=== PATIENT | female | born 1965 | race Caucasian/White ===

== ENCOUNTER 2016-10-18 12:36 | Emergency (ER) | payer BC ==
[~2016-10-18] VITALS: Ht 160 cm; Wt 74.3 kg
[~2016-10-18 12:36] MED LIST: ASPI81TA28 PO; PROP150T2 PO; TPRSR25 PO
[2016-10-18 12:40] VITALS: TEMP 36.8; Ht 160 cm; Wt 74.3 kg
[2016-10-18 12:58] VITALS: O2SAT 97
[2016-10-18] MEDS ORDERED: METO25TA3 PO (13:01)
[2016-10-18] MEDS ORDERED: ASPI81TA28 PO (13:01)
[2016-10-18] MEDS ORDERED: PROP150T PO (13:01)
[2016-10-18 13:27] LABS: BASO % 0.6 %; BASO ABS # 0.03 K/uL (0-0.2); COMPLETE YES; EOS % 1.5 %; HEMATOCRIT 37.1 % (37-47); IG% 0.2 %; LYMPH % 40.5 %; LYMPH ABS # 2.13 K/uL (1.2-3.4); MEAN CELL VOLUME 89.2 fL (80-100); MEAN CORPUSCULAR HEMOGLOBIN 30.8 pg (25-34); MEAN CORPUSCULAR HGB CONC 34.5 g/dl (32-36); MEAN PLATELET VOLUME 10.4 fL (7.4-10.4); NEUT % 50.2 %; PLATELET COUNT 267 K/uL (130-400); RED BLOOD COUNT 4.16 M/uL (4.2-5.4); WHITE BLOOD COUNT 5.26 K/uL (4.8-10.8)
--- NOTE | 2016-10-18 13:39 | DIAGNOSTIC IMAGING REPORT ---
CHEST ONE VIEW PORTABLE CLINICAL HISTORY: Fever. Sepsis. COMPARISON STUDY: Chest radiograph September 01, 2015. FINDINGS: Lung volumes are normal. There is no pneumothorax or pleural effusion. Cardiac size is normal. Mediastinal contours are normal. There is no evidence of pulmonary edema. IMPRESSION: No acute cardiopulmonary findings. Electronically signed by: Huy Galvan M.D. 10/18/2016 1:37 PM Dictated Date/Time: 10/18/2016 1:37 PM
[2016-10-18 13:40] LABS: PARTIAL THROMBOPLASTIN RATIO 1.1; PROTHROMBIN TIME (PATIENT) 10.9 SECONDS (9.0-12.0)
[2016-10-18 13:49] LABS: BLOOD UREA NITROGEN 13 mg/dl (7-18); BUN/CREATININE RATIO 17.5 (10-20); CALCIUM 8.2 mg/dl (8.5-10.1); CARBON DIOXIDE 27 mmol/L (21-32); CHLORIDE 110 mmol/L (98-107); CREATININE 0.77 mg/dl (0.60-1.20); GLUCOSE 113 mg/dl (70-99); POTASSIUM 3.6 mmol/L (3.5-5.1); SODIUM 143 mmol/L (136-145)
[2016-10-18 14:02] LABS: ALKALINE PHOSPHATASE 30 U/L (45-117); ALT/SGPT 18 U/L (12-78); AST/SGOT 11 U/L (15-37); CKMB/CK RATIO 1.6 (0-3.0)
--- NOTE | 2016-10-18 15:11 | EMERGENCY ROOM VISIT NOTE ---
History Report prepared by Magen: Dc Evans Under the Supervision of: Dr. Jam Palafox D.O. First contact with patient: 12:55 Chief Complaint: CHEST PAIN Stated Complaint: CHEST PAIN Nursing Triage Summary: Triage note: Pt reports "i went to the dr to check out some chest pain that started on saturday and they asked me to come here to do some more tests." History of Present Illness The patient is a 51 year old female who presents to the Emergency Room with complaints of waxing and waning chest pain that started 3 days ago. She says that the pain is always there, but alternates between her chest and her back. She saw her family doctor earlier today, and nothing abnormal was found, but the doctor recommended that the patient come here for further testing. The patient states that her pain level is very low right now. She denies any shortness of breath, fevers, cough, nausea, vomiting, abdominal pain, or pain or swelling in her legs. She has not had any problems with exertion. Source of History: patient Onset: 3 days ago Position: chest Symptom Intensity: pain level low right now Timing: waxes/wanes Associated Symptoms: + back pain, No SOB, No abdominal pain, No cough, No fevers, No nausea, No vomiting Note: Associated symptoms: Denies pain or swelling in legs. Review of Systems See HPI for pertinent positives & negatives. A total of 10 systems reviewed and were otherwise negative. Past Medical & Surgical Medical Problems: (1) Heart block AV second degree (2) Paroxysmal atrial fibrillation Surgical Problems: (1) H/O arthroscopic knee surgery (2) History of section (3) History of tonsillectomy Family History Heart disease Hypertension Social History Smoking Status: Never Smoker Smokeless Tobacco Use: No Alcohol Use: occasionally Marital Status: Housing Status: lives with significant other Occupation Status: employed Current/Historical Medications Scheduled Aspirin (Aspirin Ec), 81 MG PO DAILY Metoprolol Succinate (Toprol Xl), 1 TAB PO DAILY Propafenone Hcl (Propafenone Hcl), 150 MG PO TID Allergies Coded Allergies: No Known Allergies (Verified , 09/01/15) Physical Exam Vital Signs Date Time Temp Pulse Resp B/P Pulse Ox O2 Delivery O2 Flow Rate FiO2 10/18/16 15:27 63 18 106/71 98 Room Air 10/18/16 12:58 97 Room Air 10/18/16 12:57 57 10/18/16 12:55 98 Room Air 10/18/16 12:40 36.8 60 18 108/77 97 Room Air Physical Exam CONSTITUTIONAL/VITAL SIGNS: Reviewed / noted above. GENERAL: Non-toxic in appearance. INTEGUMENTARY: Warm, dry, and [place]. HEAD: Normocephalic. EYES: without scleral icterus or trauma. ENT/OROPHARYNX: clear and moist. LYMPHADENOPATHY/NECK: Is supple without lymphadenopathy or meningismus. RESPIRATORY: Lungs clear and equal. CARDIOVASCULAR: Regular rate and rhythm. GI/ABDOMEN: Soft and nontender. No organomegaly or pulsatile mass. No rebound or guarding. Normal bowel sounds. EXTREMITIES: Warm and well perfused. BACK: No CVA tenderness. NEUROLOGICAL: Intact without focal deficits. PSYCHIATRIC: normal affect. MUSCULOSKELETAL: Normally developed with good muscle tone. Medical Decision & Procedures ER Provider Diagnostic Interpretation: X ray results and stated below per my interpretation and radiology interpretation. CHEST ONE VIEW PORTABLE CLINICAL HISTORY: Fever. Sepsis. COMPARISON STUDY: Chest radiograph September 01, 2015. FINDINGS: Lung volumes are normal. There is no pneumothorax or pleural effusion. Cardiac size is normal. Mediastinal contours are normal. There is no evidence of pulmonary edema. IMPRESSION: No acute cardiopulmonary findings. Electronically signed by: Huy Galvan M.D. 10/18/2016 1:37 PM Dictated Date/Time: 10/18/2016 1:37 PM Laboratory Results 10/18/16 13:00 Red Blood Count 4.16, Mean Corpuscular Volume 89.2, Mean Corpuscular Hemoglobin 30.8, Mean Corpuscular Hemoglobin Concent 34.5, Mean Platelet Volume 10.4, Neutrophils (%) (Auto) 50.2, Lymphocytes (%) (Auto) 40.5, Monocytes (%) (Auto) 7.0, Eosinophils (%) (Auto) 1.5, Basophils (%) (Auto) 0.6, Neutrophils # (Auto) 2.64, Lymphocytes # (Auto) 2.13, Monocytes # (Auto) 0.37, Eosinophils # (Auto) 0.08, Basophils # (Auto) 0.03 10/18/16 13:00 Test 10/18/16 13:00 White Blood Count 5.26 K/uL (4.8-10.8) Red Blood Count 4.16 M/uL (4.2-5.4) Hemoglobin 12.8 g/dL (12.0-16.0) Hematocrit 37.1 % (37-47) Mean Corpuscular Volume 89.2 fL (80-100) Mean Corpuscular Hemoglobin 30.8 pg (25-34) Mean Corpuscular Hemoglobin Concent 34.5 g/dl (32-36) Platelet Count 267 K/uL (130-400) Mean Platelet Volume 10.4 fL (7.4-10.4) Neutrophils (%) (Auto) 50.2 % Lymphocytes (%) (Auto) 40.5 % Monocytes (%) (Auto) 7.0 % Eosinophils (%) (Auto) 1.5 % Basophils (%) (Auto) 0.6 % Neutrophils # (Auto) 2.64 K/uL (1.4-6.5) Lymphocytes # (Auto) 2.13 K/uL (1.2-3.4) Monocytes # (Auto) 0.37 K/uL (0.11-0.59) Eosinophils # (Auto) 0.08 K/uL (0-0.5) Basophils # (Auto) 0.03 K/uL (0-0.2) RDW Standard Deviation 39.2 fL (36.4-46.3) RDW Coefficient of Variation 12.1 % (11.5-14.5) Immature Granulocyte % (Auto) 0.2 % Immature Granulocyte # (Auto) 0.01 K/uL (0.00-0.02) Prothrombin Time 10.9 SECONDS (9.0-12.0) Prothromb Time International Ratio 1.0 (0.9-1.1) Activated Partial Thromboplast Time 27.3 SECONDS (21.0-31.0) Partial Thromboplastin Ratio 1.1 Anion Gap 6.0 mmol/L (3-11) Est Creatinine Clear Calc Drug Dose 83.4 ml/min Estimated GFR () 103.6 Estimated GFR (Non- 89.4 BUN/Creatinine Ratio 17.5 (10-20) Calcium Level 8.2 mg/dl (8.5-10.1) Total Bilirubin 0.5 mg/dl (0.2-1) Direct Bilirubin 0.1 mg/dl (0-0.2) Aspartate Amino Transf (AST/SGOT) 11 U/L (15-37) Alanine Aminotransferase (ALT/SGPT) 18 U/L (12-78) Alkaline Phosphatase 30 U/L (45-117) Total Creatine Kinase 43 U/L (26-192) Creatine Kinase MB 0.7 ng/ml (0.5-3.6) Creatine Kinase MB Ratio 1.6 (0-3.0) Troponin I < 0.015 ng/ml (0-0.045) Total Protein 6.7 gm/dl (6.4-8.2) Albumin 3.9 gm/dl (3.4-5.0) Lipase 159 U/L (73-393) Thyroid Stimulating Hormone (TSH) 1.990 uIu/ml (0.300-4.500) Laboratory results as stated above per my review. ECG Indication: chest pain Rate (beats per minute): 55 Rhythm: sinus rhythm Findings: no ectopy, other (no acute injury) ED Course 1306: Previous medical records were reviewed. The patient was evaluated in room C1B. A complete history and physical examination was performed. 1502: On reevaluation, the patient is resting comfortably. I discussed the results and findings with the patient. She verbalized agreement of the treatment plan. She was discharged home. Medical Decision the differential was considered includes acute myocardial infarction, acute coronary syndrome, myocarditis, pericarditis, pericardial effusions /tamponade, esophageal perforation, thoracic aortic dissection, pulmonary embolism, pneumonia, pneumothorax, pancreatitis, shingles, acute cholecystitis, perforated abdominal viscus. I attest that I have personally reviewed the patient's current medication list. Patient was found to have normal blood pressure on screening and does not require follow-up. This is a 51-year-old female who presents to the ED with a chief complaint of chest pain that started on Saturday. The patient states that she saw her PCP and was referred here for further evaluation. She states that she has had the symptoms for 3 days continuously but at times the pain is in the back and other times in the front. She denies any cough or fevers. No shortness of breath, nausea or vomiting. She denies any leg pain or swelling. The patient has no other complaints. Her vital signs are normal. Physical exam was normal. EKG shows a sinus rhythm at a rate of 55. CBC and complete metabolic panel were unremarkable. Troponin is negative. TSH is normal. Chest x-ray did not show acute disease. The patient was told the results the test. She is felt to be stable for discharge and outpatient follow-up. Impression Primary Impression: Retrosternal chest pain Scribe Attestation The scribe's documentation has been prepared under my direction and personally reviewed by me in its entirety. I confirm that the note above accurately reflects all work, treatment, procedures, and medical decision making performed by me. Departure Information Dispostion Home / Self-Care Referrals Kandace Bolden D.O. (PCP) Patient Instructions Chest Pain - [facility], [facility] Additional Instructions Follow-up with your doctor for further care and evaluation in 1-2 days. Return to the emergency department for worsening or new symptoms or any concerns. You have been examined and treated today on an emergency basis only. This is not a substitute for, or an effort to provide, complete comprehensive medical care. It is impossible to recognize and treat all injuries or illnesses in a single emergency department visit. It is therefore important that you follow up closely with your doctor. Call as soon as possible for an appointment.
[2016-10-18 15:27] VITALS: BP 106/71; PULSE 63; O2SAT 98
== END 2016-10-18 16:10 | disposition home or self-care (01) ==
LOC: C.EDB 12:37 → C.EDC 16:10
DX: R07.2 Precordial pain (principal); I48.91 Unspecified atrial fibrillation; I44.1 Atrioventricular block, second degree; Z96.659 Presence of unspecified artificial knee joint; Z98.890 Other specified postprocedural states; Z79.82 Long term (current) use of aspirin; Z79.899 Other long term (current) drug therapy

== ENCOUNTER 2019-11-04 10:34 | Inpatient (IN) ==
--- NOTE | 2019-11-04 10:54 | History & Physical Bridge Note ---
Date of Service November 04, 2019 History & Physical Bridge Note I have examined the patient, reviewed the History & Physical and in the interval since the performance of the History & Physical I have noted the following changes of clinical significance: no changes noted
--- NOTE | 2019-11-04 10:54 | Pre Anesthesia Assessment ---
Date of Service November 04, 2019 Pre Sedation Assessment Cardiovascular RRR, no murmur, no edema Respiratory normal respiratory effort, lungs clear to auscultation Pre-Sedation Airway Assessment Smoking Status: Never smoker Hx Sleep Apnea: No Hx Difficult Intubation: No Short, Thick Neck: No Thyromental Distance: < 3.5 Finger Breadths Oral Cavity: + WNL Mallampati Class: II ASA: ASA3 NPO Status Date of Last Intake of Fluids: 11/03/19 Date of Last Intake of Solid Food: 11/03/19 Procedure Planning Contraindications for Sedation: none Current Medications Reviewed: Yes Notes The planned sedation has been discussed with the patient. Informed Consent was obtained. I have identified the patient, determined the appropriateness of sedation and have assessed the patient immediately prior to the procedure. All medicine(s) and interventions are by my order.
[2019-11-04] MEDS ORDERED: MIDAZOLAM HCL 5 MG/ML 1 ML VIAL ONE ×3 (10:58→13:03)
[2019-11-04] MEDS ORDERED: fentaNYL citrate 100 MCG/2 ML VIAL ONE ×4 (10:58→13:36)
[2019-11-04] MEDS ORDERED: HEPARIN (PORCINE) 1000 UNIT/ML 10 ML (CATH LAB USE ONLY) ONE (12:06)
--- NOTE | 2019-11-04 13:59 | Post Anesthesia Assessment ---
Date of Service November 04, 2019 Post Sedation Assessment Recovery Score Activity: Moves 4 extremities Respiration: Deep Breath/Cough Circulation: +/-20% PreAnes Value Consciousness: Fully Awake Oxygen Saturation: > 92% On Room Air Discharge Sedation Level of Care: Fast Track Phase II Post Sedation Plan On clinical assessment, the patient appears to have tolerated the sedation without complications. Patient is recovering as anticipated. Patient will continue to be monitored by nursing and may be discharged when sedation discharge criteria are met per below protocol. Upon Completions of procedure up to 15 minutes continue every 5 minute vital signs and the P.A.R. score; then discharge to a Phase I or Fast Track to Phase II per the following guidelines: * Discharge Patient to appropriate Phase II area if PAR is 8 or greater or return to pre- procedure baseline. The post - procedure orders will be as directed. * If PAR score is less than 8 or not return to pre-procedure baseline then patient will follow Phase I monitoring till PAR is reached for Phase II. The Phase I may be done in procedure room or may call to secure a Phase I area. * If naloxone or flumazenil are used for reversal, hold in Phase I for continued monitoring from when last reversal dose was given for a minimum of 60 minutes or longer pending the nurse and/or physician discretion of patient condition before discharge to Phase II. Please call the Sedation Physician to re-evaluate and complete post-note for discharge to Phase II area. Do NOT discharge from procedure sedation or Phase 1 until post- sedation evaluation note is complete by procedure /sedation MD Sedation Discharge Instructions to be given to the patient at discharge to home.
--- NOTE | 2019-11-04 14:02 | Operative Report ---
Post Operative Report Pre & Post Diagnosis Pre: SVT Post: micro-reentry atrial flutter anterior-lateral superior to TV Operation Date: 11/04/19 12:00 <No data on this case meets the specified criteria> I identified the patient and participated in the time-out.: Yes Procedure Operation Date: 11/04/19 12:00 Actual Procedures p EPS + Ablation for SVT Flutter - Violet Ramirez DO Surgeon Violet Ramirez, Pressure Tester Operator none Estimated Blood Loss 5 Findings Consistent with Post-Op Diagnosis Specimens none Description of Procedure see official report I attest to the content of the Intraoperative Record and any orders documented therein. Any exceptions are noted below.
--- NOTE | 2019-11-04 14:09 | Discharge Summary ---
Date of Service November 07, 2019 Admission HPI Per Admitting Provider Pt admitted for elective EPS and possible ablation Admission Exam Per Admitting Provider aaox3, NAD NC/AT, EOMI Supple No JVD Tachy S1/S2, No murmur CTA b/l no w/r/r soft nt/nd no LE edema b/l skin intact no focal deficits Principal Diagnosis Atypical atrial flutter s/p EPS and ablation PAT started on sotalol Discharge Exam aaox3, NAD NC/AT, EOMI Supple No JVD Nrl S1/S2, No murmur CTA b/l no w/r/r soft nt/nd no LE edema b/l skin intact no focal deficits b/l groins soft no hematoma ENMT Mallampati Class: II Respiratory normal respiratory effort, lungs clear to auscultation Cardiovascular RRR, no murmur, no edema Discharge Data Allergies Allergy/AdvReac Type Severity Reaction Status Date / Time No Known Allergies Allergy Unknown Verified 09/01/15 12:16 Procedures Performed Operation Date: 11/04/19 12:00 Actual Procedures p EPS + Ablation for SVT Flutter - Violet Ramirez DO Ordered Studies ECG: SB 11/04/19 07:30 EP Lab Images for PACS ONCE Hospital Course (1) PAT (paroxysmal atrial tachycardia): Patient started on sotalol given the scar burden seen in intracardiac mapping of the RA involving the entire RA anterior and lateral keith; suspect pt to have more atrial arrhythmias. (2) Atypical atrial flutter: has tolerated sotalol load without issue will d/c home now script already sent to [facility]'s pharmacy will f/u as scheduled questions answered to her satisfaction Total Time Total Time Spent Total Time Spent (In Minutes): 40 Total Time Includes: Examination of the Patient, Discharge Planning, Medication Reconciliation and Other Discharge Plan Discharge Items Patient Disposition: Home - Self-Care Reason For Visit: SVT, PAT Discharge Diagnosis: Micro-reentry atypical atrial flutter s/p ablation Condition on Discharge: Good Activity: Resume your previous activity Lifting: No more than 10 pounds Lifting Comment: do not do any heavy lifting & squating for 1 week Bathing: Keep incision dry Non-emergency contact: Primary Care Provider Call non-emergency contact if: you have any medication questions Follow-up/Referrals: Quita Parsons, DO [Primary Care Provider] - Diet: Regular Addtl Attending Provider Instructions: f/u with Dr. Ramirez in [facility] December 07 at 2:15pm Pending Studies at Discharge: No Stand-Alone Forms: My [facility] Medications and DC Order Prescriptions: Continued ASPIRIN (ASPIRIN EC) 81 MG tablet 81 mg PO DAILY Qty: 0 RF: 0 Metoprolol Succinate (TOPROL XL) 25 MG [id number] 1 tab PO DAILY Qty: 0 RF: 0 PROPAFENONE HCL 150 MG tablet 150 mg PO TID Qty: 0 RF: 0 Discharge Orders: Discharge Order (Routine); Ordered 11/07/19 Ordered By: Nba Anderson/Other Patient Handouts: Sotalol tablets Betapace Admission Data Admit Date/Time: 11/05/19 08:11 Attending Provider: Violet Ramirez Admit Provider: Violet Ramirez Primary Care Provider: Quita Parsons Other Interventions: Discharge Summary Assessment (RN) Last Done: 11/07/19 10:57 DC Date/Time DO NOT enter until pt leaves facility: 11/07/19 11:24
[2019-11-04] MEDS ORDERED: SOTALOL HCL 80 MG TAB PO ONE (18:18)
--- NOTE | 2019-11-05 06:05 | Electrocardiogram Report ---
Test Reason : Blood Pressure : / mmHG Vent. Rate : 066 BPM Atrial Rate : 066 BPM P-R Int : 170 ms QRS Dur : 082 ms QT Int : 424 ms P-R-T Axes : 003 042 -13 degrees QTc Int : 444 ms Normal sinus rhythm T wave abnormality, consider anterior ischemia Abnormal ECG When compared with ECG of 18-OCT-2016 12:45, T wave inversion now evident in Inferior leads T wave inversion now evident in Anterior leads Confirmed by Cole Olsen ([id number]) on 11/05/2019 6:05:15 AM Referred By: Violet Ramirez Confirmed By:Cole Olsen
--- NOTE | 2019-11-05 08:17 | Cardiology Progress Note ---
Date of Service November 05, 2019 Assessment & Plan (1) PAT (paroxysmal atrial tachycardia): (2) Atypical atrial flutter: Subjective Pt had brief run of probably PAT with aberrancy last night; she did feel palpitations; so she was started on sotalol last night Review of Systems Review of Systems: All systems reviewed & are unremarkable except as noted in HPI & below Physical Exam Physical Exam: aaox3, NAD NC/AT, EOMI Supple No JVD Nrl S1/S2, No murmur CTA b/l no w/r/r soft nt/nd no LE edema b/l skin intact no focal deficits ENMT: Mallampati Class: II Respiratory: normal respiratory effort, lungs clear to auscultation Cardiovascular: RRR, no murmur, no edema Results & Data Vital Signs (Past 12 Hours) Vital Signs Temp Pulse Resp BP Pulse Ox 11/05/19 03:46 36.8 C 63 16 111/73 94 11/04/19 23:22 37.1 C 68 16 105/69 97 Diagnostic Findings ECG: SR Medications Administered Current Inpatient Medications Acetaminophen (Tylenol) 650 mg PO Q4H PRN PRN Reason: Pain Stop: 12/04/19 14:01 Aspirin (Ecotrin Ectab) 81 mg PO DAILY CHINEDU Stop: 12/05/19 08:59 Metoprolol Succinate (Toprol Xl) 50 mg PO DAILY CHINEDU Stop: 12/05/19 08:59 Sotalol HCl (Betapace) 80 mg PO BID CHINEDU Stop: 12/05/19 08:59
[2019-11-05] MEDS: SOTALOL HCL 80 MG TAB PO SCH ×2 (08:38→21:08)
[2019-11-05] MEDS: ASPIRIN 81 MG ECTAB PO SCH (08:38)
[2019-11-05] MEDS: ACETAMINOPHEN 325 MG TAB PO PRN ×2 (08:38→21:08)
[2019-11-05] MEDS ORDERED: METOPROLOL SUCC 50MG EXT REL TAB PO SCH (09:00)
--- NOTE | 2019-11-05 19:15 | Electrocardiogram Report ---
Test Reason : Blood Pressure : / mmHG Vent. Rate : 096 BPM Atrial Rate : 096 BPM P-R Int : 170 ms QRS Dur : 078 ms QT Int : 342 ms P-R-T Axes : 058 046 233 degrees QTc Int : 432 ms Normal sinus rhythm Possible Left atrial enlargement T wave abnormality, consider anterior ischemia Abnormal ECG When compared with ECG of 04-NOV-2019 14:59, Nonspecific T wave abnormality, worse in Lateral leads Confirmed by Cole Olsen ([id number]) on 11/05/2019 7:14:50 PM Referred By: Violet Ramirez Confirmed By:Cole Olsen
[2019-11-05] MEDS ORDERED: ZOLPIDEM TARTRATE 5 MG TAB PO PRN (20:52)
--- NOTE | 2019-11-05 23:00 | Electrocardiogram Report ---
Test Reason : Blood Pressure : / mmHG Vent. Rate : 061 BPM Atrial Rate : 061 BPM P-R Int : 204 ms QRS Dur : 080 ms QT Int : 444 ms P-R-T Axes : 003 057 013 degrees QTc Int : 446 ms Normal sinus rhythm Low voltage QRS Cannot rule out Anterior infarct , age undetermined T wave abnormality, consider anterior ischemia Abnormal ECG When compared with ECG of 04-NOV-2019 17:53, Vent. rate has decreased BY 35 BPM Confirmed by Cole Olsen ([id number]) on 11/05/2019 11:00:37 PM Referred By: Violet Ramirez Confirmed By:Cole Olsen
[2019-11-06] MEDS: SOTALOL HCL 80 MG TAB PO SCH ×2 (08:48→20:18)
[2019-11-06] MEDS: ASPIRIN 81 MG ECTAB PO SCH (08:48)
--- NOTE | 2019-11-06 15:20 | Cardiology Progress Note ---
Date of Service November 06, 2019 Assessment & Plan (1) PAT (paroxysmal atrial tachycardia): Patient status post initial ablation (2) Atypical atrial flutter: Now loading with sotalol with good tolerance No significant QT prolongation arrhythmias may be discharged tomorrow after a.m. EKG and dose Subjective Significant Patient seen and examined, chart, medications, telemetry reviewed No complaints ambulatory in the hallway without difficulty. No dizziness or lightheadedness. Telemetry without arrhythmias, overall feeling well EKG without significant QT prolongation, QTC 467 Physical Exam Constitutional: WD/WN, vitals as above Eyes: PERRL, conjunctivae normal, anicteric sclerae ENMT: external ear and nose normal, oropharynx normal Neck: trachea midline, no thyromegaly Respiratory: normal respiratory effort, lungs clear to auscultation Cardiovascular: Rate/Rhythm: regular rate and regular rhythm Heart Sounds: normal S1 and normal S2; no gallop and no murmur Palpation: normal PMI Vessels: normal carotid upstroke and radial pulses present; no JVD and no carotid bruit Extremities: no edema Gastrointestinal (Abdomen): normal bowel sounds, soft, nontender, no hepatosplenomegaly Musculoskeletal: no cyanosis or clubbing, extremities motor strength 5/5 Skin: no rashes, warm and dry Neurologic: PERRL, EOMI, accommodation nl, no face palsy, no dysarthria Psychiatric: A+Ox3, euthymic affect Results & Data Vital Signs (Past 12 Hours) Vital Signs Temp Pulse Pulse Resp BP Pulse Ox 11/06/19 11:21 36.8 C 61 18 124/81 94 11/06/19 08:00 55 L 11/06/19 06:49 36.7 C 60 17 103/65 93 11/06/19 03:55 36.7 C 54 L 17 106/72 94 ECG Additional Comments: 06-NOV-2019 06:27:55 [facility]-CCU ROUTINE RETRIEVAL Normal sinus rhythm T wave abnormality, consider anterior ischemia Prolonged QT Abnormal ECG When compared with ECG of 05-NOV-2019 06:48, No significant change was found QTC 467
[2019-11-06] MEDS: ACETAMINOPHEN 325 MG TAB PO PRN (20:19)
--- NOTE | 2019-11-06 23:38 | Electrocardiogram Report ---
Test Reason : Blood Pressure : / mmHG Vent. Rate : 061 BPM Atrial Rate : 061 BPM P-R Int : 206 ms QRS Dur : 084 ms QT Int : 464 ms P-R-T Axes : 002 052 -05 degrees QTc Int : 467 ms Normal sinus rhythm T wave abnormality, consider anterior ischemia Abnormal ECG When compared with ECG of 05-NOV-2019 06:48, No significant change was found Confirmed by Cole Olsen ([id number]) on 11/06/2019 11:38:22 PM Referred By: Violet Ramirez Confirmed By:Cole Olsen
[2019-11-07] MEDS: SOTALOL HCL 80 MG TAB PO SCH (08:28)
[2019-11-07] MEDS: ASPIRIN 81 MG ECTAB PO SCH (08:28)
--- NOTE | 2019-11-07 09:06 | Electrocardiogram Report ---
Test Reason : Blood Pressure : / mmHG Vent. Rate : 055 BPM Atrial Rate : 055 BPM P-R Int : 194 ms QRS Dur : 082 ms QT Int : 488 ms P-R-T Axes : 002 050 017 degrees QTc Int : 466 ms Sinus bradycardia Low voltage QRS Nonspecific T wave abnormality Prolonged QT Abnormal ECG When compared with ECG of 06-NOV-2019 06:27, No significant change was found Confirmed by Armani Monaco ([id number]) on 11/07/2019 9:06:07 AM Referred By: Violet Ramirez Confirmed By:Armani Monaco
--- NOTE | 2019-11-07 11:01 | Cardiology Progress Note ---
Date of Service November 07, 2019 Assessment & Plan (1) PAT (paroxysmal atrial tachycardia): Patient status post initial ablation (2) Atypical atrial flutter: has tolerated sotalol load without issue will d/c home now script already sent to [facility]'s pharmacy will f/u as scheduled questions answered to her satisfaction Subjective Pt seen and examined, chart reviewed. No complaints overnight. Anxious for discharge. Denies cp, sob, palpitations, lightheadedness or dizziness. Tele reviewed: sinus rhythm without arrhythmia or significant ectopy EKG: sinus with QTc of 466 ms Review of Systems Review of Systems: All systems reviewed & are unremarkable except as noted in HPI & below Physical Exam Physical Exam: Physical Exam: General: Awake, alert and oriented x 3. No acute distress. HEENT: Normocephalic, atraumatic. Pupils equal, round and reactive to light and accommodation. Extraocular muscles are intact. Anicteric sclera. Moist mucous membranes. Neck: No JVD. No bruit. Cardiovascular: Regular. No S-4. Normal S-1 and S-2. No S-3. No murmurs, rubs or gallops. Pulmonary: Clear to auscultation bilaterally. No rales, rhonchi, or wheezing. Abdomen: Bowel sounds x 4, soft. No rebound, guarding or tenderness. No organomegaly. Extremities: No clubbing, cyanosis or edema. +2 pedal pulses bilaterally. Skin: Warm and dry. Results & Data Vital Signs (Past 12 Hours) Vital Signs Temp Pulse Pulse Pulse Resp BP Pulse Ox 11/07/19 10:57 36.7 C 60 59 L 18 111/74 95 11/07/19 08:00 57 L 11/07/19 07:12 36.7 C 59 L 18 111/74 95 11/07/19 04:21 36.8 C 57 L 18 117/77 94 11/07/19 00:12 36.6 C 60 18 106/69 92
--- NOTE | 2019-11-11 04:15 | Operative Report (OR) ---
DATE OF OPERATION: 11/04/2019 PREOPERATIVE DIAGNOSIS: Supraventricular tachycardia. POSTOPERATIVE DIAGNOSIS: Atypical atrial flutter. PROCEDURE: Electrophysiology study, radiofrequency ablation of an atypical atrial flutter, and 3D mapping of the His bundle region and 3D activation mapping of the atypical flutter. SURGEON: Violet Ramirez DO. ASSISTANTS: None. ANESTHESIA: Monitored conscious sedation administered under my supervision by Dc Cardenas. Start time 11:34, end time 1400. Total of 12 mg of Versed, 300 mcg of fentanyl. INTRAVENOUS FLUIDS: 72 mL. BLOOD LOSS: Less than 5 mL. COMPLICATIONS: None. CONDITION: Stable. URINE OUTPUT: Not applicable. SPECIMENS: None. FINDINGS: See below. DRAINS: None. INDICATIONS: This is a 54-year-old female who has a past medical history for palpitations and possible atrial flutter/atrial fibrillation and be in atrial tachycardia. She had been on propafenone, Toprol and aspirin. She was recently seen in our office for an acute visit where she was in an SVT and relatively slow in the low 100s. She received adenosine and it did break and she was recommended an electrophysiology study with possible ablation. URINE OUTPUT: Not applicable. SPECIMENS: None. FINDINGS: See below. DRAINS: None. CONSENT: Consent was obtained prior to the patient going into electrophysiology lab. The patient was informed of the risks, benefits and alternative procedure. Risks include but not limited to sudden cardiac , cardiac arrhythmias, cerebrovascular accident, myocardial infarction, injury to the blood vessels, chamber of the heart, [place] electrical system where she might need an emergent pacemaker, bleeding and infection. The patient understood these risks and agreed with procedure as planned. Informed consent was obtained. DESCRIPTION OF THE PROCEDURE: The patient was brought into the electrophysiology lab in a fasting state. She was asked to continuous air sampling and monitoring. Timeout was performed to ensure patient identity and procedure correctly. The patient was prepped and draped over bilateral groins in normal surgical standard fashion. Monitored conscious sedation was given throughout the procedure for patient's comfort level. Angelica precautions were maintained throughout the procedure. 10 mL of 1% lidocaine, bupivacaine mixture were given in the bilateral groins for local anesthesia. Then using modified Seldinger technique, venous access was obtained in the following manner. In the left femoral groin, a 6-Iraqi sheath followed by a Francisca Decapolar catheter positioned in the right ventricular apex. A 7-Iraqi sheath followed by a Biosense Decapolar coronary sinus catheter positioned down the coronary sinus. A 7-Iraqi sheath followed by Hisser quadripolar catheter positioned over the His bundle. The right femoral vein had a 6-Iraqi sheath followed by a Francisca quadripolar catheter positioned in the high right atrium and a 6-Iraqi sheath that was ultimately swapped out for an 8-Iraqi sheath and ultimately had a 4 mm DF curve ThermoCool Biosense ablation catheter. With the catheters in place, we found she was in her arrhythmia at the start. Her tachycardia cycle length was 262 milliseconds, so we did 3D activation mapping of the arrhythmia and found that there was not early meets late phase. Interestingly, she had a lot of scar on but there was barely any electrogram signals around her anterior and lateral portions of the right atrium. The only real life healthy tissues some electrogram standpoint were posterior and spectally. Again the tachycardia cycle length was 262 milliseconds and she had 2:1 and 3:1 AV conduction, so localizing that, it looked like this tachycardia was going around the scar region and there was an early meets late phase, I opted to put an ablation line through this early meets late phase area pretty much in an anterolateral portion of the right superior to the tricuspid valve to the mid right atrium giving a series of radiofrequency ayala at 30 katz for about 20 seconds. Ultimately, she did break into sinus rhythm during one of the ayala. We then looked to see that I had block on either side by pacing within the ablation catheter on either side of the line and pacing off the coronary sinus. When the ablation catheter was medial to the line, the distance to the coronary sinus was 58 milliseconds and the ablation catheter was lateral to the line, the distance of the coronary sinus was 174 milliseconds suggesting that we had block. During our post-ablation waiting phase, an electrophysiology study was performed with the following findings: Sinus cycle length was 1003 milliseconds. The NE interval was 181 milliseconds, QRS was 60 milliseconds, QT was 391 milliseconds, the HV was 73 milliseconds, AH was 88 milliseconds. The AV node ERP was 700/320 and 600/340. Atrial ERP was 700/280 and 600/280. The right ventricular ERP was 600/300 and 400/270 and the AV Wenckebach was 430 milliseconds. During the waiting period, I tried to reinduce any tachycardia despite burst atrial pacing down to 200 milliseconds as well as giving some doubles. There was no reactivation of any tachycardia, so all the catheters were then removed from the body and the sheaths were pulled using manual compression to establish hemostasis. IMPRESSION: 1. Atypical atrial flutter around a very significantly scarred right atrium involving the anterior and lateral keith. 2. Successful radiofrequency ablation of the atypical atrial flutter with a line in from the mid right atrium down to the tricuspid valve and anterior lateral area. 3. Normal atrioventricular romelia conduction. PLAN: Monitor patient overnight, 12-lead ECG. I am concerned that she could potentially have more atrial arrhythmias and if she does have some overnight then I would opt to start sotalol and admit her to the hospital as opposed to continuing anymore flecainide. She will follow up in my office in 1 month's time. She is not to do any heavy lifting or squatting for a week. I attest to the content of the Intraoperative Record and any orders documented therein. Any exceptions are noted below. SADIA
== END 2019-11-07 11:24 | disposition home or self-care (01) | DRG 274 ==
LOC: EP 10:34 → 2S 10:34